=== PATIENT | female | born 1990 | race Hispanic/Latino ===

== ENCOUNTER 2023-12-27 16:56 | Emergency (ER) | payer OTHER, SELFPAY ==
[2023-12-27 17:09] VITALS: BP 139/89; PULSE 75; RESP 20; TEMP 36.8; O2SAT 100
[2023-12-27] MEDS: LIDOCAINE HCL 1% LOCAL INJ 2 ML AMPUL 4 ML INFILTRATE (17:37)
--- NOTE | 2023-12-27 17:37 | ED.WOUNDLAC ---
HPI - Wound/Laceration General Chief Complaint: Wound/Laceration Stated Complaint: Right hand laceration Time Seen by Provider: 12/27/23 17:25 Source: patient, RN notes reviewed, old records reviewed and certified court interpreter (Vietnamese) Mode of arrival: ambulatory Limitations: no limitations History of Present Illness HPI narrative: 33-year-old female presents to the [facility] with a right hand laceration between 1st and 2nd finger. States that she was cutting food up while cooking and the knife slipped cut her hand. Unknown last Tdap. Bleeding is controlled. Full range of motion of all fingers. Sensation intact with capillary refill under 2 seconds Treatments prior to arrival: bandage Related Data Home Medications Medication Instructions Recorded Confirmed No Home Medications 12/27/23 12/27/23 Allergies Allergy/AdvReac Type Severity Reaction Status Date / Time No Known Allergies Allergy Verified 12/27/23 17:11 Review of Systems Review of Systems: All systems reviewed & are unremarkable except as noted in HPI and below Constitutional: Constitutional: Reports no additional constitutional complaints Eyes: Eyes: Reports no additional eye complaints ENT: Reports system reviewed and no additional complaints, except as documented Cardiovascular: Cardiovascular: Reports no additional cardiovascular complaints, Denies chest pain and Denies dyspnea Respiratory: Respiratory: Reports no additional respiratory complaints, Denies chest congestion, Denies cough and Denies dyspnea Gastrointestinal: Gastrointestinal: Reports no additional gastrointestinal complaints, Denies abdominal pain, Denies nausea and Denies vomiting Musculoskeletal: Musculoskeletal: Reports no additional musculoskeletal complaints Integumentary/Breasts: Skin/Breast: Reports as per HPI Neurologic: Reports system reviewed and no additional complaints, except as documented Psychiatric: Psychiatric: Reports no additional psychiatric complaints Allergic/Immunologic: Allergic/Immunologic: Reports no additional allergic/immunologic complaints PMFSH Comments At the time of my signature, I reviewed and agree with the nursing past medical, surgical, social, and family history. There is no relevant family history pertinent to the patient complaint. Exam Const: General: cooperative, healthy appearing, comfortable, no acute distress, well developed, alert and well nourished Nutritional Appearance: well nourished Orientation/consciousness: patient oriented x3 Limitations: no limitations HENMT: Head: normal to inspection Ears: hearing grossly normal bilaterally and external ears normal Face/Nose/Sinus: Normal external nose present, Normal nares present, Normal nasal mucous membranes and turbinates present, normal facial exam and face symmetric Face and sinus: normal facial exam and face symmetric Eyes: General: appearance normal, both eyes and all related structures Alignment and Position: alignment normal Periorbital: periorbital findings normal Neck: Neck: normal visual inspection, full ROM, no lymphadenopathy and no meningeal signs Chest: Chest palpation & inspection: normal inspection of the chest Resp: Effort & Inspection: normal respiratory effort and able to speak in complete sentences Cardio: Rate: regular rate Skin: General skin exam: normal color and no rashes or lesions noted Lesions: no lesions Rashes: no rashes Trauma: no lacerations or abrasions Other: U shaped flap of skin to and 0.5 cm right hand palmar aspect between 1st and 2nd finger Neuro: General: patient oriented x3, gait normal, tone normal, moves all extremities and no meningeal signs Cranial nerves: Yes Equal, round and reactive pupils present Cognition (Neuro): normal cognition Speech: normal speech Gait exam (Neuro): Normal gait present Extrem: General: normal to inspection, full ROM, capillary refill normal and normal gait Right upper extremity: Extremity exam: righ
[2023-12-27] MEDS: TETANUS,DIPHTHERIA,AC PERTUSSIS ADULT (0.5 ML) BOOSTRIX IM (17:39)
[2023-12-27] MEDS: WATER FOR IRRIGATION, STERILE 1,000 ML BOTTLE 250 ML IRRIGATION (18:15)
== END 2023-12-27 18:35 | disposition home or self-care (01) ==
PROVIDERS: Emergency Provider Nurse Practitioner
DX: S61.411A Laceration without foreign body of right hand, initial encounter (principal); W26.0XXA Contact with knife, initial encounter; Y93.G3 Activity, cooking and baking; Z23 Encounter for immunization
CPT/HCPCS: 12001; 90471; 90715; 99202; G0463

== ENCOUNTER 2024-10-05 18:49 | Emergency (ER) | payer OTHER, SELFPAY ==
--- NOTE | 2024-10-05 18:51 | ED.GENADULT ---
HPI - General Adult General Chief complaint: Headache Stated complaint: headache Source: patient, RN notes reviewed and old records reviewed Mode of arrival: ambulatory Limitations: no limitations History of Present Illness HPI narrative: 33-year-old female presents to the [facility] with a temporal headache that started approximately 1:00 pm. today. Did take Tylenol at 4:30 a.m. this afternoon. Denies any neuro deficits. Patient is symmetric. Patient denies any blurry vision or change in vision. Reports some nausea without vomiting. Related Data Allergies Allergy/AdvReac Type Severity Reaction Status Date / Time No Known Allergies Allergy Verified 10/05/24 19:11 Review of Systems Review of Systems: All systems reviewed & are unremarkable except as noted in HPI and below Constitutional: Constitutional: Reports no additional constitutional complaints ENT: Reports system reviewed and no additional complaints, except as documented Cardiovascular: Cardiovascular: Reports no additional cardiovascular complaints, Denies chest pain and Denies dyspnea Respiratory: Respiratory: Reports no additional respiratory complaints, Denies chest congestion, Denies cough and Denies dyspnea Musculoskeletal: Musculoskeletal: Reports no additional musculoskeletal complaints Integumentary/Breasts: Skin/Breast: Reports system reviewed and no additional complaints, except as docu Neurologic: Reports as per HPI, Denies dizziness and Reports headache(s) PMFSH Comments At the time of my signature, I reviewed and agree with the nursing past medical, surgical, social, and family history. There is no relevant family history pertinent to the patient complaint. Exam Const: General: cooperative, healthy appearing, no acute distress, well developed, alert, tired appearing, uncomfortable and well nourished Nutritional Appearance: well nourished Orientation/consciousness: patient oriented x3 Limitations: no limitations HENMT: Head: normal to inspection Ears: hearing grossly normal bilaterally, external ears normal, TM's normal bilaterally, EAC's normal, mastoids normal and no periauricular adenopathy Mouth: Yes Normal oral and palatal mucosa present, Yes lip normal, Yes tongue normal and Yes moist mucous membranes Throat: posterior oropharynx normal, uvula midline and no uvular edema Eyes: General: appearance normal, both eyes and all related structures Alignment and Position: alignment normal Neck: Neck: normal visual inspection, full ROM, no lymphadenopathy and no meningeal signs Chest: Chest palpation & inspection: normal inspection of the chest Resp: Effort & Inspection: normal respiratory effort and able to speak in complete sentences Auscultation: clear to auscultation bilaterally, no crackles, no rales, no rhonchi and no wheezes Cardio: Rate: regular rate Skin: General skin exam: normal color and no rashes or lesions noted Neuro: General: patient oriented x3, gait normal, moves all extremities, no meningeal signs and no focal motor deficits Cranial nerves: Yes Equal, round and reactive pupils present, Yes Nystagmus not present, Yes facial symmetry, Yes Midline tongue present, Yes Symmetric palate elevation present, Yes Normal hearing present and Yes Ability to bilaterally elevate shoulders present Cognition (Neuro): normal cognition Speech: normal speech Gait exam (Neuro): Normal gait present Motor exam (neuro): Pronator motor function not present and No tremor noted Extrem: General: normal to inspection, full ROM, capillary refill normal and normal gait Psych: Appearance: grossly normal and well kempt Mental Status: mental status grossly normal Speech and movement: Normal speech and movement present and Clear speech present Affect: normal affect Attitude: cooperative Course Course Level of Care: Express Care Visit Vital Signs Vital signs: Vital Signs Temperature 97.7 F 10/05/24 18:55 Pulse Rate 66 10/05/24 18:55 Respiratory Rate 16 10/05/24 18:55 Blood Pressure 127/79 10/05/24 18:55 Pulse Oximetry 100 10/05/24 18:55 Oxygen Delivery Room Air 10/05/24 18:55 Temperature 97.7 F 10/05/24 18:55 Pulse Rate 66 10/05/24 18:55 Respiratory Rate 16 10/05/24 18:55 Blood Pressure 127/79 10/05/24 18:55 Pulse Oximetry 100 10/05/24 18:55 Oxygen Delivery Room Air 10/05/24 18:55 Reviewed Medical Decision Making MDM Narrative Medical decision making narrative: Patient sitting in exam room. flavor maker offered, would like to use significant other. Patient reports with a couple of hours of a headache. Took Tylenol with no improvement. Toradol given here patient reports pain decreased from 9-6. Discussed in great detail signs and symptoms proceed to the emergency room as well as [id number] treatments. Patient verbalized understanding Discharge instructions reviewed with patient, as well as provided in writing per nursing staff. The instructions also include specific and strict return/GO TO THE ER as well as f/u information. All questions have been answered, and the patient deny any further questions with discharge and discharge plan. Some parts of this dictation were generated by voice recognition software and may contain typographical and/or grammatical inaccuracies. Differential Diagnosis Differential Diagnosis: Acute headache, temporal headache, sinus congestion Medical Records Medical records reviewed: Yes I reviewed the external patient's medical records. Vital Signs Vital Signs: Vital Signs Temperature 97.7 F 10/05/24 18:55 Pulse Rate 66 10/05/24 18:55 Respiratory Rate 16 10/05/24 18:55 Blood Pressure 127/79 10/05/24 18:55 Pulse Oximetry 100 10/05/24 18:55 Oxygen Delivery Room Air 10/05/24 18:55 Temperature 97.7 F 10/05/24 18:55 Pulse Rate 66 10/05/24 18:55 Respiratory Rate 16 10/05/24 18:55 Blood Pressure 127/79 10/05/24 18:55 Pulse Oximetry 100 10/05/24 18:55 Oxygen Delivery Room Air 10/05/24 18:55 Reviewed Lab Data Lab results reviewed: Yes I reviewed the patient's lab results. Labs: Reviewed Critical Care Time Critical Care Time Critical Care Time: No Discharge Plan Discharge Clinical Impression: Headache Qualifiers: Headache type: unspecified Headache chronicity pattern: acute headache Patient Disposition: Home Condition: Stable Instructions: Antibiotic Form, Acute Headache (DC) Additional Instructions: Take Tylenol alternating with ibuprofen as needed for pain Stay hydrated with plenty of water, Gatorade, Pedialyte, ice pops in Jell-O Rest cool dark room. Absolutely no screen time which includes no cell phones, computers were televisions. For worsening symptoms please go directly to the emergency room Patient Language: Luxembourgish Prescriptions: New ondansetron 4 mg tablet,disintegrating 4 mg PO Q8H PRN (Reason: nausea and vomiting) Qty: 7 0RF ibuprofen 600 mg tablet 600 mg PO TID PRN (Reason: fever or pain) Qty: 30 0RF Follow-up/Referrals: UNKNOWN,DOCTOR [Non-Staff] - Time of Disposition: 19:36
[2024-10-05 18:55] VITALS: BP 127/79; PULSE 66; RESP 16; TEMP 36.5; O2SAT 100
[2024-10-05] MEDS: KETOROLAC (*BKC) 60 MG/2 ML VIAL IM (19:07)
== END 2024-10-05 19:42 | disposition home or self-care (01) ==
PROVIDERS: Emergency Provider Nurse Practitioner
DX: R51.9 Headache, unspecified (principal)
CPT/HCPCS: 96372; 99213; G0463; J1885